=== PATIENT | female | born 1985 | race Caucasian/White ===

== ENCOUNTER 2018-10-09 11:57 | Emergency (ER) | payer SELFPAY ==
[2018-10-09] MEDS ORDERED: NS 0.9% 1000 ML** 1,000 ML IV ONE (12:58)
[2018-10-09] MEDS ORDERED: Ondansetron INJ* 2 MG/ML VIAL IV ONE (12:59)
[2018-10-09] MEDS ORDERED: diPHENhydraMINE IV* 50 MG/ML 1 ml VIAL (BENADRYL) SLOW PUSH ONE (13:00)
--- NOTE | 2018-10-09 13:07 | UC ---
Abdominal Pain Female HPI - HPI Summary HPI Summary: Starting this morning she has had multiple episodes of vomiting and cramping. She then started to have diarrhea. No fever. No bleeding. She had ex lap one time but no problems were found. She believes this may be food poisoning. Both she and S.O. ate at [employer] and she had similar foods as him. NO travel to endemic parts of the world. THey are here from [place] as students. - History of Current Complaint Chief Complaint: [employer] Stated Complaint: VOMITING,DIARRHEA x7 HRS Time Seen by Provider: 10/09/18 12:50 Hx Obtained From: Patient, Family/Farmworker [employer] Hx Last Menstrual Period: 09/16/18 ?: No - On ocp. Onset/Duration: Gradual Onset Timing: Constant Severity Initially: Severe Severity Currently: Severe Pain Intensity: 9 Location: Diffuse Radiates: No Character: Aching, Colicy, Cramping Aggravating Factor(s): Nothing Alleviating Factor(s): Nothing Associated Signs and Symptoms: Positive: Nausea, Vomiting, Diarrhea Allergies/Adverse Reactions: Allergies Allergy/AdvReac Type Severity Reaction Status Date / Time No Known Allergies Allergy Verified 10/09/18 12:19 Home Medications: Home Medications Bcp 1 tab DAILY 10/09/18 [History Confirmed 10/09/18] PMH/Surg Hx/FS Hx/Imm Hx Previously Healthy: Yes - She does mention prior episodes of GI illness like this but no ongoing issu - Surgical History Surgical History: None - Family History Known Family History: Positive: Non-Contributory - Social History Occupation: Student Alcohol Use: None Substance Use Type: None Smoking Status (MU): Never Smoked Tobacco Review of Systems All Other Systems Reviewed And Are Negative: Yes Gastrointestinal: Positive: Vomiting, Diarrhea Physical Exam Triage Information Reviewed: Yes Appearance: Well-Appearing, Well-Nourished Vital Signs: Initial Vital Signs Temp 98.8 F 10/09/18 12:20 Pulse 99 10/09/18 12:20 Resp 18 10/09/18 12:20 BP 134/102 10/09/18 12:20 Pulse Ox 100 10/09/18 12:20 Vital Signs Reviewed: Yes Eyes: Positive: Conjunctiva Clear ENT: Positive: Pharynx normal, TMs normal. Negative: Pharyngeal erythema, Nasal congestion Dental: Negative: Gross Decay/Caries @ Neck: Positive: Supple, Nontender, No Lymphadenopathy. Negative: Nuchal Rigidity Respiratory: Positive: Lungs clear, Normal breath sounds, No respiratory distress. Negative: No accessory muscle use, Respiratory distress, Decreased breath sounds, Accessory muscle use, Crackles, Rhonchi, Stridor, Wheezing Cardiovascular: Positive: No Murmur, Pulses Normal, Brisk Capillary Refill Abdomen Description: Positive: No Organomegaly, Soft, Other: - Epigastric tenderness and LLQ tendeness. Soft and flat.. Negative: Distended, Guarding Musculoskeletal: Positive: Strength Intact, ROM Intact, No Edema Neurological: Positive: Alert, Muscle Tone Normal. Negative: Fatigued Psychological: Positive: Age Appropriate Behavior Skin Exam: Normal Skin: Negative: Rashes Re-Evaluation - Re-Evaluation First Eval Change: Improved - She feels much better. No vomiting or diarrhea while here. We will po challange with crackers and pedialyte. Abd Pain Female Course/Dx - Course Course Of Treatment: No worrisome features to this GI illness. We discussed possible viral infection versus food poisoning which are both treated much the same way. zofran, po fluids and supportive care. She will return for any worsening or prolonged symptoms. Travel from [facility] would not constitute as travelers diarrhea and no antibiotics are needed. - Differential Dx/Diagnosis Provider Diagnosis: Gastroenteritis Discharge - Sign-Out/Discharge Documenting (check all that apply): Patient Departure All imaging exams completed and their final reports reviewed: No Studies - Discharge Plan Condition: Good Disposition: HOME Prescriptions: Dicyclomine CAP* [Bentyl CAP*] 10 mg PO TID PRN #8 cap PRN Reason: Pain Ondansetron ODT TAB* [Zofran 4 MG Odt TAB*] 4 mg PO Q8H PRN #8 tab.odt PRN Reason: Vomiting Patient Education Materials: Gastroenteritis (ED) Referrals: No Primary Care Phys,NOPCP [Primary Care Provider] - Additional Instructions: return here with any worsening. - Billing Disposition and Condition Condition: GOOD Disposition: Home
[2018-10-09 14:26] VITALS: BP 143/88
== END 2018-10-09 14:36 | disposition home or self-care (01) ==
LOC: UCCORT 11:57
DX: K52.9 Noninfective gastroenteritis and colitis, unspecified (principal)
CPT/HCPCS: 96361; 96374; 96375; 99202; G0463; J1200; J2405